=== PATIENT | female | born 1990 | race Asian ===

== ENCOUNTER 2018-01-15 12:42 | Emergency (ER) | payer MEDICAID ==
[~2018-01-15] VITALS: Ht 162.6 cm; Wt 76.7 kg
[2018-01-15 12:58] VITALS: BP 145/97
--- NOTE | 2018-01-15 14:06 | NUR ---
CALLED 1X @ 0332
--- NOTE | 2018-01-15 14:10 | NUR ---
CALLED WITH NO RESPONSE
--- NOTE | 2018-01-15 14:17 | NUR ---
CALLED X 1 NO RESPONSE
--- NOTE | 2018-01-15 14:17 | NUR ---
PATIENT LEFT WITHOUT BEING SEEN BY DR. ROMERO. NO FURTHER CARE PROVIDED FOR PATIENT.
== END 2018-01-15 14:06 | disposition left against medical advice (07) ==
LOC: MED 12:42
DX: S90.562A Insect bite (nonvenomous), left ankle, initial encounter (principal); Z53.21 Procedure and treatment not carried out due to patient leaving prior to being seen by health care provider; W57.XXXA Bitten or stung by nonvenomous insect and other nonvenomous arthropods, initial encounter; Y93.89 Activity, other specified; Y92.89 Other specified places as the place of occurrence of the external cause; Y99.8 Other external cause status

== ENCOUNTER 2018-01-24 00:35 | Emergency (ER) | payer SELFPAY ==
[~2018-01-24] VITALS: Ht 162.6 cm; Wt 79.4 kg
[2018-01-24 00:38] VITALS: BP 153/96
[2018-01-24] MEDS: CLINDAMYCIN 600 MG/4 ML VIAL IM ONE (02:01)
[2018-01-24] MEDS: BACITRACIN OINT 500 UNITS/GM PKT TP ONE (02:02)
[2018-01-24 02:15] VITALS: BP 138/86
== END 2018-01-24 02:15 | disposition home or self-care (01) ==
LOC: MED 00:35
DX: R21 Rash and other nonspecific skin eruption (principal); L29.9 Pruritus, unspecified; J45.909 Unspecified asthma, uncomplicated
CPT/HCPCS: 96372; 99283; J3490

== ENCOUNTER 2018-05-15 18:45 | Emergency (ER) | payer MEDICAID ==
[~2018-05-15] VITALS: Ht 162.6 cm; Wt 74.8 kg
[2018-05-15 18:54] VITALS: BP 145/104
[2018-05-15 20:05] VITALS: BP 127/68
== END 2018-05-15 20:05 | disposition home or self-care (01) ==
LOC: MED 18:45
DX: N94.6 Dysmenorrhea, unspecified (principal); J45.909 Unspecified asthma, uncomplicated
CPT/HCPCS: 74018; 81002; 81025; 99283

== ENCOUNTER 2019-11-05 17:32 | Emergency (ER) | payer MEDICAID, OTHER ==
[~2019-11-05] VITALS: Ht 160 cm; Wt 76.7 kg
[2019-11-05 17:45] VITALS: BP 137/100
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
--- NOTE | 2019-11-05 18:28 | NUR ---
devyn moreno at bedside examining pt
[2019-11-05] MEDS ORDERED: KETOROLAC 60 MG/2 ML VIAL IM ONE (18:35)
--- NOTE | 2019-11-05 18:54 | NUR ---
[facility] IM ADMINISTERED
--- NOTE | 2019-11-05 18:56 | NUR ---
PT TO XRAY VIA WHEELCHAIR
--- NOTE | 2019-11-05 19:14 | NUR ---
RECIEVED REPORT FROM JD BARROSO. TRANSFER OF CARE AT THIS TIME.
--- NOTE | 2019-11-05 19:20 | NUR ---
PT RETURNED FROM RAD VIA WHEELCHAIR. STATES HER PAIN HAS BEEN REDUCED TO 5/10 POST IM TORODOL.
[2019-11-05 20:10] VITALS: BP 132/91
--- NOTE | 2019-11-05 20:10 | NUR ---
Patient discharged with v/s stable. Written and verbal after care instructions given and explained. Patient alert, oriented and verbalized understanding of instructions. Ambulatory with steady gait. All questions addressed prior to discharge. ID band removed. Patient advised to follow up with PMD. Rx of FLEXERIL, NORCO given. Patient educated on indication of medication including possible reaction and side effects. Opportunity to ask questions provided and answered.
== END 2019-11-05 20:10 | disposition home or self-care (01) ==
LOC: MED 17:32
DX: S16.1XXA Strain of muscle, fascia and tendon at neck level, initial encounter (principal); S50.12XA Contusion of left forearm, initial encounter; S60.212A Contusion of left wrist, initial encounter; J45.909 Unspecified asthma, uncomplicated; V29.88XA Motorcycle rider (driver) (passenger) injured in other specified transport accidents, initial encounter; Y93.89 Activity, other specified; Y92.89 Other specified places as the place of occurrence of the external cause; Y99.8 Other external cause status
CPT/HCPCS: 72050; 73090; 73100; 81025; 96372; 99284; J1885; Q0092

== ENCOUNTER 2020-10-11 16:47 | Emergency (ER) | payer OTHER ==
[~2020-10-11] VITALS: Ht 162.6 cm; Wt 76.2 kg
[2020-10-11 17:17] VITALS: BP 133/98
--- NOTE | 2020-10-11 17:41 | NUR ---
PATIENT LEFT WITHOUT BEING SEEN BY DR. TALLEY. NO FURTHER CARE PROVIDED FOR PATIENT.
== END 2020-10-11 17:41 | disposition left against medical advice (07) ==
LOC: MED 16:47
DX: R10.9 Unspecified abdominal pain (principal); R11.2 Nausea with vomiting, unspecified; R19.7 Diarrhea, unspecified; Z53.21 Procedure and treatment not carried out due to patient leaving prior to being seen by health care provider

== ENCOUNTER 2020-10-13 03:39 | Emergency (ER) | payer OTHER ==
[~2020-10-13] VITALS: Ht 162.6 cm; Wt 73.9 kg
[2020-10-13 03:48] VITALS: BP 122/90
--- NOTE | 2020-10-13 03:48 | NUR ---
TO BED AMBULATORY
--- NOTE | 2020-10-13 03:54 | NUR ---
30/F BIB SELF C/O DIFFUSE SHARP ABD PAIN 10/10, NAUSEA, VOMITING, AND DIARRHEA FOR 4 DAYS. DENIES ANY FEVER, CHILLS, PAINFUL URINATION. DENIES PMH NKDA
[2020-10-13] MEDS ORDERED: ONDANSETRON 4 MG/2 ML VIAL IVP ONE (04:15)
[2020-10-13] MEDS ORDERED: NACL 0.9% 1,000 ML IV ONE (04:15)
[2020-10-13] MEDS ORDERED: MORPHINE SULFATE 2 MG/ML SYR IVP ONE (04:15)
--- NOTE | 2020-10-13 04:48 | NUR ---
URINE AND BLOOD SAMPLE COLLECTED AND SENT TO LAB
--- NOTE | 2020-10-13 04:52 | NUR ---
PT TAKEN TO CT
[2020-10-13 04:56] LABS: APPEARANCE,URINE CLEAR (CLEAR); BILIRUBIN,URINE NEGATIVE (NEGATIVE); BLOOD, URINE NEGATIVE (NEGATIVE); COLOR,URINE YELLOW (YELLOW); LEUKOCYTE ESTERASE ,URINE TRACE (NEGATIVE); NITRITE, URINE NEGATIVE (NEGATIVE); UGLUCOSE NEGATIVE (NEGATIVE)
[2020-10-13 05:05] LABS: BASOPHILS # (AUTO) 0.2 K/uL (0.00-0.22); BASOPHILS % (AUTO) 1.7 % (0.0-2.0); EOSINOPHILS # (AUTO) 0.8 K/uL (0-0.4); EOSINOPHILS % (AUTO) 6.8 % (0.0-4.0); HEMOGLOBIN 12.9 g/dL (12.0-16.0); LYMPHOCYTES # (AUTO) 2.9 K/uL (2.5-16.5); LYMPHOCYTES % (AUTO) 24.4 % (20.5-51.1); MEAN CORPUSCULAR HEMOGLOBIN 21 pg (27-31); MEAN CORPUSCULAR HGB CONC 34 g/dL (33-37); MEAN CORPUSCULAR VOLUME 61.1 fL (80-94); MONOCYTES # (AUTO) 0.6 K/uL (0.8-1.0); MONOCYTES % (AUTO) 4.8 % (1.7-9.3); NEUTROPHILS # (AUTO) 7.4 K/uL (1.8-7.7); NEUTROPHILS % (AUTO) 62.3 % (42.2-75.2); PLATELET COUNT (AUTO) 356 K/uL (140-450); RED BLOOD CELL COUNT(AUTO) 6.22 MIL/uL (4.20-5.40); RED CELL DISTRIBUTION WIDTH 17.1 % (11.6-13.7); WHITE BLOOD COUNT (AUTO) 11.9 K/uL (4.8-10.8)
[2020-10-13 05:06] LABS: ANION GAP 17.2 (8-16); CARBON DIOXIDE 24.8 mmol/L (21-32); CREATININE 0.9 mg/dL (0.6-1.3)
[2020-10-13 05:12] LABS: RBC,URINE 0-5 /HPF (0-5)
[2020-10-13 05:12] LABS: ALBUMIN 3.7 g/dL (3.4-5.0); TOTAL BILIRUBIN 0.2 mg/dL (0.0-1.0)
[2020-10-13 05:13] LABS: WBC,URINE 0-5 /HPF (0-5)
[2020-10-13 05:58] LABS: HCG,QUANTITATIVE < 1 mIU/mL (0-6)
--- NOTE | 2020-10-13 07:17 | NUR ---
ENDORSED TO SHELLY MILES FOR CONTINUITY OF CARE
--- NOTE | 2020-10-13 07:18 | NUR ---
Report received from JD Reynoso; care assumed.
--- NOTE | 2020-10-13 07:20 | NUR ---
Patient A&O x4 and states that her pain has improved, is now 5/10. Patient reports that her nausea has also improved. Patient is resting in bed comfortably, bed in the lowest position, side rail up and call light within reach.
[2020-10-13] MEDS ORDERED: ONDA-24 PO (07:56)
[2020-10-13] MEDS ORDERED: FAMO-92 PO (07:56)
[2020-10-13 08:03] VITALS: BP 121/70
--- NOTE | 2020-10-13 08:03 | NUR ---
Patient discharged with v/s stable. Written and verbal after care instructions given and explained. Patient alert, oriented and verbalized understanding of instructions. Ambulatory with steady gait. All questions addressed prior to discharge. ID band removed. Patient advised to follow up with PMD. Rx of Famotidine, ondansetron given. Patient educated on indication of medication including possible reaction and side effects. Opportunity to ask questions provided and answered.
== END 2020-10-13 08:03 | disposition home or self-care (01) ==
LOC: MED 03:39
DX: R10.13 Epigastric pain (principal); R11.2 Nausea with vomiting, unspecified; R19.7 Diarrhea, unspecified; J45.909 Unspecified asthma, uncomplicated
CPT/HCPCS: 36415; 74176; 80053; 81001; 81025; 83605; 83690; 84702; 85025; 96361; 96374; 96375; 99284; J2270; J2405; J7030